=== PATIENT | male | born 1980 | race Caucasian/White ===

== ENCOUNTER 2016-11-14 00:13 | Emergency (ER) | payer OTHER ==
[~2016-11-14] VITALS: Ht 177.8 cm; Wt 113.4 kg
[~2016-11-14 00:13] MED LIST: GUAIFENESIN-COD10 ML PO; PROAIR HFA8.5 GM INH; ZITHROMAX250 M2 PO
--- NOTE | 2016-11-14 01:46 | ED GENERAL ADULT ---
History of Present Illness General Chief Complaint: General Adult Stated Complaint: ? HERNIA, GROIN PAIN X'S FEW DAYS Source: patient Exam Limitations: no limitations Vital Signs & Intake/Output Vital Signs & Intake/Output Vital Signs Date Time Temp Pulse Resp B/P Pulse O2 O2 Flow FiO2 Ox Delivery Rate 11/14 0524 97.2 70 18 132/84 100 Room Air 11/14 0200 Room Air 11/14 0019 69 18 139/89 100 Room Air Allergies Coded Allergies: NO KNOWN ALLERGIES (05/03/16) Reconcile Medications Albuterol Sulfate (Proair Hfa) 8.5 GM HFA.AER.AD 2 PUF INH Q4-6 PRN PRN wheezing Azithromycin (Zithromax) 250 MG TABLET 1 DP PO AD bronchitis 2 the first day followed by 1 for days 2-5 Cyclobenzaprine HCl 10 MG TABLET 1 TAB PO BID PRN PAIN Meloxicam (Mobic) 15 MG TABLET 1 TAB PO DAILY PRN PAIN Robitussin AC (Guaifenesin-Codeine Syrup) 10 ML LIQUID 10 ML PO Q6HR PRN COUGH Triage Note: PAIN IN RT TESTICLE STARTED TUESDAY NIGHT, HAS HAD BACK PAIN SINCE TUESDAY Triage Nurses Notes Reviewed? yes Onset: Abrupt Duration: day(s): Timing: recent history HPI: 11/14/16 2:41 AM This is a 36-year-old male presents to the emergency department with several days of right sided flank pain radiating to the right testicle. According to the patient he said that about 3 or 4 days ago he started developing severe burning right-sided flank pain that radiates to the right testicle. Today he was trying to do some work and he had intense right sided testicle pain. He does have some nausea no vomiting. No significant past medical history. The onset of the symptoms were abrupt, the duration was just this evening, the severity was significant as his symptoms required him to come to the emergency department for care; he has minimal pain now in the Emergency Department. On exam he does have some minimal right sided CVA tenderness. The testicle is completely nontender, there is no hernia appreciated when he is standing. There is bilateral cremasterics reflexes. CT scan of the abdomen and pelvis was ordered and a urinalysis. Past History Travel History Traveled to [place] past 21 day No Medical History Any Pertinent Medical History? 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 No Review of Systems Review of Systems Constitutional: Denies: diaphoresis. EENTM: Denies: visual changes. Respiratory: Denies: short of breath. Cardiovascular: Denies: chest pain. GI: Reports: see HPI. Genitourinary: Reports: see HPI. Musculoskeletal: Reports: back pain. Skin: Denies: rash. Neurological/Psychological: Reports: see HPI. Hematologic/Endocrine: Denies: bruising, bleeding. Physical Exam Physical Exam General Appearance: well developed/nourished, alert, awake, anxious, mild distress Head: atraumatic, normal appearance Eyes: Bilateral: normal appearance, PERRL, EOMI. Ears, Nose, Throat: normal pharynx, normal ENT inspection Neck: normal inspection, supple, full range of motion Respiratory: normal breath sounds, chest non-tender, no respiratory distress Cardiovascular: regular rate/rhythm Peripheral Pulses: 4+ radial (R), 4+ radial (L) Gastrointestinal: soft, non-tender Back: normal range of motion Extremities: normal inspection, normal capillary refill, normal range of motion Neurologic/Psych: no motor/sensory deficits, awake, alert, oriented x 3, normal gait Skin: intact, normal color, warm/dry Comments: there was no rash identified. the patient was told to look out for the possibility of vesicular rash. Core Measures ACS in differential dx? No CVA/TIA Diagnosis: No Severe Sepsis Present: No Septic Shock Present: No Progress Differential Diagnoses I considered the following diagnoses in my evaluation of the patient: [ sciatica , lumbar strain, epidural abscess, pyelonephritis, UTI, renal colic, testicular torsion, hernia, appendicitis] Plan of Care: Orders Procedure Date/time Status URINALYSIS 11/14 0231 Complete Laboratory Tests 11/14/16 0251: Urine Color YEL, Urine Clarity CLEAR, Urine pH 6.0, Ur Specific Dalton >= 1.030 , Urine Protein NEG, Urine Ketones NEG, Urine Nitrite NEG, Urine Bilirubin NEG, Urine Urobilinogen 1.0, Ur Leukocyte Esterase NEG, Ur Microscopic EXAM NOT REQUIRED, Urine Hemoglobin NEG, Urine Glucose NEG Initial ED EKG: none Departure Departure Disposition: HOME OR SELF CARE Condition: Stable Clinical Impression Primary Impression: Back pain Secondary Impressions: Lumbar radiculopathy, acute Referrals: DONTRELL MARY,[place] De (PCP/Family) Departure Forms: Customer Survey General Discharge Information Prescriptions: Current Visit Scripts Meloxicam (Mobic) 1 TAB PO DAILY PRN PAIN #20 TAB Cyclobenzaprine HCl 1 TAB PO BID PRN PAIN #[address] scan of the abdomen and pelvis was unremarkable. There was a small umbilical hernia containing fat.. Some of the right testicle was negative for torsion. urinalysis was negative he has minimal to no pain at this time.. Told to follow-up with his doctor on Tuesday, return to the emergency department if worse. Critical Care Note Critical Care Note Critical Care Time: non-applicable
--- NOTE | 2016-11-14 03:42 | CT SCAN REPORT ---
EXAMINATION: CT ABDOMEN AND PELVIS WITHOUT CONTRAST CLINICAL INFORMATION: Right flank pain. Urolithiasis. COMPARISON: None TECHNIQUE: Multidetector volumetric imaging was performed from the superior aspect of the liver through the pubic symphysis. Sagittal and coronal reformatted images were obtained on the technologist's workstation. No oral or IV contrast DLP: mGy-cm FINDINGS: LUNG BASES: The visualized lung bases are unremarkable. LIVER, GALLBLADDER, AND BILIARY TREE: Low-attenuation of liver parenchyma due to fatty change. No focal liver lesion. No intrapelvic bile duct dilatation. The gallbladder is unremarkable with no evidence of radiopaque gallstones, gallbladder wall thickening, or obvious pericholecystic inflammatory changes. PANCREAS: Unremarkable. SPLEEN: Unremarkable. ADRENAL GLANDS: Unremarkable. KIDNEYS AND URETERS: The kidneys are normal in size, shape, and attenuation. No hydronephrosis, hydroureter, or calculi seen. No perinephric stranding. BLADDER: Unremarkable. GASTROINTESTINAL TRACT: The small and large bowel are unremarkable. The appendix is unremarkable. ABDOMINAL WALL: Small fat-containing umbilical hernia. LYMPH NODES: Normal. VASCULAR: Unremarkable. PELVIC VISCERA: Unremarkable. OSSEOUS STRUCTURES: Unremarkable. IMPRESSION: Normal CT scan abdomen pelvis. Normal kidneys, ureter and bladder. Normal appendix.
--- NOTE | 2016-11-14 05:10 | ULTRASOUND REPORT ---
EXAMINATION: ULTRASOUND SCROTUM CLINICAL INFORMATION: Right testicular pain COMPARISON: None. TECHNIQUE: Routine scrotal ultrasound with grayscale and spectral and color Doppler. FINDINGS: Testicle: There is homogeneous echotexture of the right and left testicle. No focal lesion. Doppler demonstrates arterial and venous vascular flow in both testicles. Right testicle: 4.5 x 2.9 x 3.5 cm. Volume 29 mL. Left testicle: 4.1 x 2.9 x 3.4 cm. Volume 37 mL Epididymis: There is normal vascular flow with Doppler.. No abnormal mass. Varices: There is no varices. Hydrocele: There is no hydrocele. Scrotal wall: Unremarkable. IMPRESSION: Normal ultrasound of the scrotum.
[2016-11-14] MEDS ORDERED: MOBIC15 M1 PO (05:19)
[2016-11-14] MEDS ORDERED: CYCLOBENZAPRINE10 M1 PO (05:19)
[2016-11-14 05:24] VITALS: BP 132/84
== END 2016-11-14 05:24 ==
LOC: ERH 00:13
DX: M54.9 Dorsalgia, unspecified (principal); M54.16 Radiculopathy, lumbar region; N50.811 Right testicular pain
CPT/HCPCS: 74176; 81003